=== PATIENT | male | born 1990 | race Two or more races ===

== ENCOUNTER 2017-01-14 09:23 | Emergency (ER) | payer BC ==
--- NOTE | 2017-01-14 09:27 | EDM.PDOC ---
ED HPI GENERAL MEDICAL PROBLEM - General Chief Complaint: Abdominal Pain Stated Complaint: spitting up blood, abd pain Time Seen by Provider: 01/14/17 09:25 Source of Information: Reports: Patient, Old Records ([facility] EMR. No paper hospital chart available.), Other (Friend, EMR [facility]) History Limitations: Reports: Language Barrier - History of Present Illness INITIAL COMMENTS - FREE TEXT/NARRATIVE: The patient was brought to the emergency room via private automobile by his friend evaluation of nonspecific sharp intermittent left chest wall pain and left upper quadrant abdominal pain with symptoms present for at least 1-2 months and progressive during the last week. He complains of 10/10 at this time with patient taking both Prilosec and Protonix with no improvement in his symptoms. He does have a known history of a peptic ulcer, which was still present at time of her last EGD as below. He noticed some possible hemoptysis earlier this morning with no history of true hematemesis, significant cough, wheezing, dyspnea, fever, or distress. No recent history of other abdominal pain , nausea, diarrhea, constipation, melena, gross hematochezia, or any food intolerance, including fatty foods, etc.. The patient denies any chest pain/ pressure, heart flutter, dizziness, orthostasis, orthopnea, diaphoresis, paresthesias, recent decreased exercise tolerance, or any other anginal-type symptoms. Onset: Gradual Duration: Getting Worse, Intermittent, Other (As above) Location: Reports: Chest, Abdomen. Denies: Head, Face, Neck, Back, Pelvis, Upper Extremity, Left, Upper Extremity, Right, Generalized, Radiates to Quality: Reports: Same as Previous Episode, Sharp, Stabbing Severity: Severe Improves with: Reports: None Worsens with: Reports: None Context: Reports: Other (As above) Associated Symptoms: Reports: Chest Pain (Chest wall), Cough (Occasional), cough w sputum (Possible hemoptysis as above). Denies: Confusion, Diaphoresis, Fever/Chills, Headaches, Loss of Appetite, Malaise, Nausea/Vomiting, Shortness of Breath, Syncope, Weakness Treatments VIDEO JOURNALIST: Reports: Other Medication(s) (As above) Left Upper Abdomen Pain Score (Numeric/FACES): 10 - Related Data Allergies Allergy/AdvReac Type Severity Reaction Status Date / Time iopamidol [From Isovue-128] Allergy Hives Verified 01/14/17 12:09 Home Meds: Home Meds Famotidine [Pepcid] 20 mg PO BID #60 tablet 01/14/17 [Rx] Pantoprazole Sodium 40 mg PO BID #60 tablet. 01/14/17 [Rx] Sucralfate [Carafate] 1 gm PO QIDACANDBED #100 tablet 01/14/17 [Rx] Past Medical History HEENT History: Reports: None. Denies: Allergic Rhinitis, Glaucoma, Impaired Vision, Macular Degeneration, Otitis Media Cardiovascular History: Reports: None. Denies: Afib, Arrhythmia, Blood Clots/ VTE/DVT, CAD, Heart Murmur, High Cholesterol, Hypertension, NM, PVD, Syncope Respiratory History: Reports: Other (See Below). 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 Denies: Celiac Disease, Cholelithiasis, Chronic Constipation , Chronic Diarrhea, GI Bleed, Inflammatory Bowel Disease, Irritable Bowel Syndrome Other Gastrointestinal History: Refractory gastric ulcer by EGD Genitourinary History: Reports: None. Denies: BPH, Chronic Renal Insuffiency, Renal Calculus, STD, Urinary Incontinence, UTI, Recurrent Musculoskeletal History: Reports: Back Pain, Chronic, Fracture, Osteoarthritis, Other (See Below). Denies: Amputation, Gout, Neck Pain, Chronic, RA, SLE Other Musculoskeletal History: Scoliosis, minor distal right tibial and fibular fracture in 2011 Neurological History: Reports: None. Denies: Cerebral Aneurysms, Concussion, CVA, Headaches, Chronic, Head Trauma, Migraines, Seizure, TIA Psychiatric History: Reports: Anxiety, Depression. Denies: Addiction, Psych Hospitalization(s), Suicide Attempt, Suicidal Ideation Endocrine/Metabolic History: Reports: None. Denies: Diabetes, Type I, Diabetes , Type II, Hypothyroidism, IDDM Hematologic History: Reports: None. Denies: Anemia, Blood Transfusion(s), Iron Deficiency Immunologic History: Reports: None. Denies: AIDS, HIV, SLE Oncologic (Cancer) History: Reports: None Dermatologic History: Reports: None. Denies: Eczema, Psoriasis - Infectious Disease History Infectious Disease History: Reports: Helicobacter Pylori. Denies: C-Difficile, Chicken Pox, Measles, Meningitis, Mononucleosis, MRSA, Mumps, Pertussis ( Whooping Cough), Rubella, Shingles, TB, VRE - Past Surgical History Head Surgeries/Procedures: Reports: None HEENT Surgical History: Reports: None. Denies: Adenoidectomy, Eye Surgery, Laser Surgery, LASIK, Myringotomy w Tube(s), Naso-Sinus Surgery, Oral Surgery, Tonsillectomy Cardiovascular Surgical History: Reports: None. Denies: Varicose, Vascular Surgery Respiratory Surgical History: Reports: None. Denies: Lung Biopsies, Pneumonectomy, Thoracentesis GI Surgical History: Reports: Colonoscopy, EGD, Other (See Below). Denies: Appendectomy, Cholecystectomy, Hernia, Abdominal, Hernia, Inguinal, Hernia Repair/Other, Polypectomy Other GI Surgeries/Procedures: Normal colonoscopy on 11/28/15; EGD with biopsies on 08/15/15 with repeat colonoscopy with biopsy on 01/17/16 with apparently diagnosed gastric ulcer at that time, which apparently persisted at time of repeat procedure in April 2016 Male Surgical History: Reports: None Endocrine Surgical History: Reports: None Neurological Surgical History: Reports: None Musculoskeletal Surgical History: Reports: None Oncologic Surgical History: Reports: None Dermatological Surgical History: Reports: None - Past Imaging History Past Imaging History: Reports: CAT Scan (CT scan of the chest, abdomen, and pelvis with contrast on 06/21/15; CT scan of the abdomen and pelvis with contrast on 06/15/16), Ultrasound (Abdominal ultrasound on 11/11/15), Other (See Below) ( Esophageal motility study on 01/17/16) Social & Family History - Tobacco Use Smoking Status *Q: Current Every Day Smoker Tobacco Use Within Last Twelve Months: Snuff/Dip Years of Tobacco use: 3 Packs/Tins Daily: 0.5 (Started chewing tobacco at age 23) Used Tobacco, but Quit: Yes Month Tobacco Last Used: Patient smoked about one half pack of cigarettes for about one year, Smoking Cessation Information Provided To Patient: Yes Second Hand Smoke Exposure: No Second Hand Smoke Education Provided: No - Caffeine Use Caffeine Use: Reports: Soda (2 sodas per week), Tea (1 cup per day). 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 ED EXAM, GI/ABD - Physical Exam Exam: See Below Exam Limited By: No Limitations General Appearance: Alert, WD/WN, No Apparent Distress, Anxious (Moderate) Eyes: Bilateral: Normal Appearance, EOMI (PERRLA) Ears: Normal External Exam, Normal Canal, Hearing Grossly Normal, Normal TMs Nose: Normal Inspection, Normal Mucosa, No Blood Throat/Mouth: Normal Inspection, Normal Lips, Normal Teeth, Normal Gums, Normal Oropharynx, Normal Voice, No Airway Compromise. No: Dysphagia, Perioral Cyanosis Head: Atraumatic, Normocephalic Neck: Normal Inspection, Supple, Non-Tender, Full Range of Motion. No: Lymphadenopathy (L), Lymphadenopathy (R), Thyromegaly Respiratory/Chest: No Respiratory Distress, Lungs Clear, Normal Breath Sounds, No Accessory Muscle Use, Chest Non-Tender. No: Rales, Pleural Rub, Retractions Cardiovascular: Normal Peripheral Pulses, Regular Rate, Rhythm, No Edema, No Gallop, No JVD, No Murmur, No Rub. No: Gallop/S3, Gallop/S4, Friction Rub GI/Abdominal Exam: Normal Bowel Sounds, Soft, No Organomegaly, No Distention, No Abnormal Bruit, No Mass, Pelvis Stable, Tender (Borderline left upper quadrant palpation pain). No: Guarding, Rigid, Rebound (Male) Exam: Deferred Rectal (Males) Exam: Deferred Back Exam: Normal Inspection, Full Range of Motion. No: CVA Tenderness (L), CVA Tenderness (R) Extremities: Normal Inspection, Normal Range of Motion, Non-Tender, No Pedal Edema, Normal Capillary Refill. No: Cristian's Sign Neurological: Alert, Oriented, CN II-XII Intact, Normal Cognition, Normal Gait, No Motor/Sensory Deficits Psychiatric: Anxious (Moderate), Depressed Mood (Borderline) Skin Exam: Warm, Dry, Intact, Normal Color, No Rash. No: Diaphoretic, Ecchymosis, Jaundice, Lymphangitis, Pallor, Petechiae, Wound/Incision Lymphatic: No Adenopathy Course - Vital Signs Last Recorded V/S: Last Vital Signs Temp 36.7 C 01/14/17 12:11 Pulse 62 01/14/17 13:05 Resp 16 01/14/17 13:05 BP 104/60 01/14/17 11:15 Pulse Ox 97 01/14/17 13:05 Vital Signs - 24 hr 01/14/17 01/14/17 01/14/17 09:30 10:02 10:15 Temperature [ Oral] Temperature [ 37.2 C Temporal] Pulse, 71 65 78 Peripheral [ Left Pulse Oximetry] Respiratory 16 16 16 Rate Blood Pressure 120/67 116/58 L 115/63 [Right Upper Arm] O2 Sat by Pulse 99 98 97 Oximetry 01/14/17 01/14/17 01/14/17 10:40 11:15 12:11 Temperature [ 36.7 C Oral] Temperature [ Temporal] Pulse, 70 67 Peripheral [ Left Pulse Oximetry] Respiratory 16 16 Rate Blood Pressure 105/60 104/60 [Right Upper Arm] O2 Sat by Pulse 97 97 Oximetry 01/14/17 13:05 Temperature [ Oral] Temperature [ Temporal] Pulse, 62 Peripheral [ Left Pulse Oximetry] Respiratory 16 Rate Blood Pressure [Right Upper Arm] O2 Sat by Pulse 97 Oximetry - Orders/Labs/Meds Orders: Active Orders 24 hr Category Date Time Status Peripheral IV Care [RC] . DIRECTED Care 01/14/17 09:28 Active Abdomen Pelvis w Cont [CT] Stat Exams 01/14/17 11:27 Taken Abdomen Series w Chest 1V [CR] Stat Exams 01/14/17 09:28 Taken Chest wo Cont [CT] Stat Exams 01/14/17 12:06 Taken Obtain Past Medical Record [OM.PC] Urgent Oth 01/14/17 09:28 Active Peripheral IV Insertion Adult [OM.PC] Stat Oth 01/14/17 09:28 Ordered Resuscitation Status Stat Resus Stat 01/14/17 09:28 Ordered Labs: Laboratory Tests 01/14/17 01/14/17 01/14/17 Range/Units 09:46 09:46 09:46 WBC 9.4 (4.0-10.2) K/uL RBC 5.23 (4.33-5.41) M/uL Hgb 16.5 (13.1-16.8) g/dL Hct 44.9 (39.0-49.0) % MCV 85.9 (84.0-98.0) fL MCH 31.5 (28.2-33.3) pg MCHC 36.7 H (31.7-36.0) g/dL RDW 13.2 (11.2-14.1) % Plt Count 255 (150-350) K/uL Neut % (Auto) 66.5 (45.0-80.0) % Lymph % (Auto) 25.3 (10.0-50.0) % [place] % (Auto) 6.9 (2.0-14.0) % Eos % (Auto) 1.1 (0.0-5.0) % Baso % (Auto) 0.2 (0.0-2.0) % Neut # (Auto) 6.22 (1.40-7.00) K/uL Lymph # (Auto) 2.37 (0.50-3.50) K/uL [place] # (Auto) 0.65 (0.00-1.00) K/uL Eos # (Auto) 0.10 (0.00-0.50) K/uL Baso # (Auto) 0.02 (0.00-0.20) K/uL PT 11.6 (9.8-11.7) SEC INR 1.1 APTT 27.3 (22.1-29.8) SEC Sodium (136-145) mmol/L Potassium (3.5-5.1) mmol/L Chloride (98-107) mmol/L Carbon Dioxide (21.0-32.0) mmol/L BUN (7-18) mg/dL Creatinine (0.51-1.17) mg/dL Est Cr Clr Drug Dosing mL/min Estimated GFR (MDRD) mL/min Glucose (74-106) mg/dL Lactic Acid (0.4-2.0) mmol/L Uric Acid (2.6-7.2) mg/dL Calcium (8.5-10.1) mg/dL Magnesium (1.8-2.4) mg/dL Total Bilirubin (0.2-1.0) mg/dL AST (15-37) U/L ALT (12-78) U/L Alkaline Phosphatase (46-116) IU/L Total Protein (6.4-8.2) g/dL Albumin (3.4-5.0) g/dL Amylase 39 (25-115) U/L Lipase (73-393) U/L 01/14/17 01/14/17 Range/Units 09:46 09:46 WBC (4.0-10.2) K/uL RBC (4.33-5.41) M/uL Hgb (13.1-16.8) g/dL Hct (39.0-49.0) % MCV (84.0-98.0) fL MCH (28.2-33.3) pg MCHC (31.7-36.0) g/dL RDW (11.2-14.1) % Plt Count (150-350) K/uL Neut % (Auto) (45.0-80.0) % Lymph % (Auto) (10.0-50.0) % [place] % (Auto) (2.0-14.0) % Eos % (Auto) (0.0-5.0) % Baso % (Auto) (0.0-2.0) % Neut # (Auto) (1.40-7.00) K/uL Lymph # (Auto) (0.50-3.50) K/uL [place] # (Auto) (0.00-1.00) K/uL Eos # (Auto) (0.00-0.50) K/uL Baso # (Auto) (0.00-0.20) K/uL PT (9.8-11.7) SEC INR APTT (22.1-29.8) SEC Sodium 140 (136-145) mmol/L Potassium 4.6 (3.5-5.1) mmol/L Chloride 103 (98-107) mmol/L Carbon Dioxide 27.5 (21.0-32.0) mmol/L BUN 11 (7-18) mg/dL Creatinine 0.77 (0.51-1.17) mg/dL Est Cr Clr Drug Dosing 132.34 mL/min Estimated GFR (MDRD) > 60 mL/min Glucose 89 (74-106) mg/dL Lactic Acid 0.7 (0.4-2.0) mmol/L Uric Acid 4.9 (2.6-7.2) mg/dL Calcium 9.2 (8.5-10.1) mg/dL Magnesium 1.9 (1.8-2.4) mg/dL Total Bilirubin 0.7 (0.2-1.0) mg/dL AST 30 (15-37) U/L ALT 43 (12-78) U/L Alkaline Phosphatase 98 (46-116) IU/L Total Protein 8.4 H (6.4-8.2) g/dL Albumin 4.1 (3.4-5.0) g/dL Amylase (25-115) U/L Lipase 215 (73-393) U/L Meds: Medications Discontinued Medications Generic Name Dose Route Start Last Admin Trade Name Freq PRN Reason Stop Dose Admin Diphenhydramine HCl 50 mg 01/14/17 11:36 01/14/17 11:41 Benadryl IVPUSH 01/14/17 11:37 50 mg ONETIME ONE Administration Famotidine 40 mg 01/14/17 09:28 01/14/17 09:37 Pepcid IVPUSH 01/14/17 09:29 40 mg ONETIME ONE Administration Iopamidol 100 ml 01/14/17 10:11 01/14/17 12:18 Isovue-300 (61%) IVPUSH 01/14/17 10:12 100 ml ONETIME ONE Administration Methylprednisolone Sodium Succinate 125 mg 01/14/17 11:36 01/14/17 11:41 Solu-Medrol IVPUSH 01/14/17 11:37 125 mg ONETIME ONE Administration Sodium Chloride 10 ml 01/14/17 09:28 01/14/17 11:45 Saline Flush FLUSH 10 ml ASDIRECTED PRN Administration Keep Vein Open - Radiology Interpretation Free Text/Narrative:: Acute abdominal x-rays shows evidence of moderate to severe hypoexpansion of the right lung with secondary atelectasis but no significant pulmonary infiltrates. Shifting of the mediastinum to the right secondary to right with some prominence of the mediastinal region. No cardiomegaly, CHF, pneumothorax, fluid levels, ileus,, obstruction, or free air Telephone consultation at 12:00 hours with the radiology department at [facility] with initial preliminary verbal report of CT scan of the abdomen and pelvis with contrast showing no significant findings. Subsequent Telephone consultation with the same department at 13:00 hours with preliminary verbal report of CT scan of the chest with contrast showing stable findings from previous evaluation on 06/21/15 including right pulmonary artery atresia CT Results Date: 01/14/17 CT Results Time: 12:00 Departure - Departure Time of Disposition: 13:20 Disposition: Home, Self-Care 01 Condition: Good Clinical Impression: Hemoptysis, Tobacco abuse counseling, Peptic reflux disease, Mixed anxiety depressive disorder, Pulmonary artery anomaly Allergic reaction caused by a drug Qualifiers: Encounter type: initial encounter Qualified Code(s): T78.40XA - Allergy, unspecified, initial encounter - Discharge Information Prescriptions: Famotidine [Pepcid] 20 mg PO BID #60 tablet Pantoprazole Sodium 40 mg PO BID #60 tablet. Sucralfate [Carafate] 1 gm PO QIDACANDBED #100 tablet Instructions: Drug Allergy, [id number], Abdominal Pain, Adult, [id number] Referrals: PCP,Not In Area [Ordering Only Provider] - Forms: ED Department Discharge Additional Instructions: 1. Followup with your regular provider in 10-14 days as directed. Possible further GI workup depending on her response to your new medical therapy 2. Tylenol 650 mg by mouth every 4 hours when necessary as directed. Strict no use of ibuprofen, Aleve, or other NSAIDs 3. Work excuse- See Form 4. Stop all tobacco use SUZANNE as directed/per provided information and consider contacting Quit LIne, etc.. 5. Discuss possible medical therapy and/or counseling with your regular provider concerning increased stressors at your above follow-up visit 6. You may use OTC Benadryl at 50 mg by mouth every 4 hours when necessary, if allergic skin reaction recurs, with sedation precautions with this medication. Notify your providers that she will are now allergic to IV contrast dye 7. Sedation precautions with no driving, etc. for 12 hours because of emergency room medications. - Problem List & Annotations (1) Abdominal pain SNOMED Code(s): 33406433 Code(s): R10.9 - UNSPECIFIED ABDOMINAL PAIN Status: Acute Priority: High Onset Date: ~10/23/15 Annotation/Comment:: Various therapeutic options were discussed with the patient. He was strongly encouraged to discontinue chewing tobacco use SUZANNE secondary to his refractory gastric ulcer. He was once again counseled on the proper use of Nicorette gum and provided tobacco cessation information. During last EGD in April 2016 the patient apparently misunderstood discharge instructions and discontinue both his Prilosec and Protonix. His Prilosec will be discontinued with his Protonix increased to 40 mg by mouth twice a day he will also be initiated on additional Pepcid 20 mg twice a day and Carafate 4 times a day, before meals, as a paste with close follow-up by his regular provider as per discharge instructions. Work excuse provided. Otitis IV Pepcid given in the emergency room with patient already taking both oral Protonix and omeprazole earlier this morning. Qualifiers: Abdominal location: epigastric Qualified Code(s): R10.13 - Epigastric pain (2) Peptic reflux disease SNOMED Code(s): 21025167 Code(s): K21.9 - GASTRO-ESOPHAGEAL REFLUX DISEASE WITHOUT ESOPHAGITIS Status: Chronic Priority: High Annotation/Comment:: Note refractory gastric ulcer as above. Note previous H. pylori infection. Repeat stool specimen for H. pylori evaluations strongly recommended (3) Pulmonary artery anomaly SNOMED Code(s): 33936130 Code(s): Q25.79 - OTHER CONGENITAL MALFORMATIONS OF PULMONARY ARTERY Status : Chronic Priority: Medium Annotation/Comment:: Note CT scan results as above. Continue to observe closely by his regular providers as per discharge instructions, including consideration of MRI of the chest, possible PFTs, TB evaluation, etc. secondary to his possible hemoptysis (4) Hemoptysis SNOMED Code(s): 10564115 Code(s): R04.2 - HEMOPTYSIS Status: Acute Priority: High Onset Date: Annotation/Comment:: Possible hemoptysis earlier this morning by patient history. 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 The patient was in [place] for about 3 months and just returned to this area on 01/05/17. No known direct exposure to TB, although consideration of further testing and evaluation, if his hemoptysis recurs. No direct evidence of significant pneumonia, CHF, etc. at this time (5) Allergic reaction caused by a drug SNOMED Code(s): 205039462 Code(s): T78.40XA - ALLERGY, UNSPECIFIED, INITIAL ENCOUNTER Status: Acute Priority: High Onset Date: 01/14/17 Annotation/Comment:: The patient unfortunately developed mild diffuse generalized hives and pruritus after the administration of IV and oral contrast, and he will the now declared allergic to contrast. The patient will notify his provider concerning this reaction today. IV Solu-Medrol and IV Benadryl were given with overall good results with previous IV Pepcid as above. Note that no evidence of dysphagia, dyspnea, angioedema, etc. with EpiPen not required. Symptoms resolved at time of discharge with no additional sequelae from the above eaction. Qualifiers: Encounter type: initial encounter Qualified Code(s): T78.40XA - Allergy, unspecified, initial encounter (6) Mixed anxiety depressive disorder SNOMED Code(s): 306369077 Code(s): F41.8 - OTHER SPECIFIED ANXIETY DISORDERS Status: Chronic Priority: Medium Annotation/Comment:: Moderate anxious affect today. Continue to observe closely by his regular provider with consideration of medical therapy as needed as per discharge instructions (7) Tobacco abuse counseling SNOMED Code(s): 135514332, 869269349 Code(s): Z71.6 - TOBACCO ABUSE COUNSELING Status: Chronic Priority: Medium Annotation/Comment:: As above - Problem List Review Problem List Initiated/Reviewed/Updated: Yes - My Orders Last 24 Hours: My Active Orders 01/14/17 09:28 Peripheral IV Care [RC] . DIRECTED Abdomen Series w Chest 1V [CR] Stat Obtain Past Medical Record [OM.PC] Urgent Peripheral IV Insertion Adult [OM.PC] Stat Resuscitation Status Stat 01/14/17 11:27 Abdomen Pelvis w Cont [CT] Stat 01/14/17 12:06 Chest wo Cont [CT] Stat - Assessment/Plan Last 24 Hours: My Active Orders 01/14/17 09:28 Peripheral IV Care [RC] . DIRECTED Abdomen Series w Chest 1V [CR] Stat Obtain Past Medical Record [OM.PC] Urgent Peripheral IV Insertion Adult [OM.PC] Stat Resuscitation Status Stat 01/14/17 11:27 Abdomen Pelvis w Cont [CT] Stat 01/14/17 12:06 Chest wo Cont [CT] Stat Assessment:: As above Plan: As above. Extensive precautions were given to the patient and his friend, who are in agreement with the treatment plan. See Patient Instructions for further treatment and plan.
[2017-01-14] MEDS ORDERED: Famotidine 20 MG/2 ML SDV IVPUSH ONE (09:28)
[2017-01-14] MEDS: Sodium Chloride 0.9% 10 ML Syringe FLUSH PRN ×2 (09:37→11:45)
[2017-01-14 10:08] LABS: CHLORIDE,CL 103 mmol/L (98-107); SODIUM,NA 140 mmol/L (136-145)
[2017-01-14] MEDS ORDERED: Iopamidol 612 MG/ML 100 ML Bottle IVPUSH ONE (10:11)
[2017-01-14 11:20] VITALS: BP 104/60
[2017-01-14] MEDS ORDERED: diphenhydrAMINE 50 MG/ML SDV IVPUSH ONE (11:36)
[2017-01-14] MEDS ORDERED: methylPREDNISolone Sodium Succinate 125 MG/2 ML SDV IVPUSH ONE (11:36)
== END 2017-01-14 13:20 | disposition home or self-care (01) ==
LOC: LL.ED 09:23
DX: K21.9 Gastro-esophageal reflux disease without esophagitis (principal); R04.2 Hemoptysis; T50.905A Adverse effect of unspecified drugs, medicaments and biological substances, initial encounter; F17.210 Nicotine dependence, cigarettes, uncomplicated; Z88.8 Allergy status to other drugs, medicaments and biological substances; Z71.6 Tobacco abuse counseling; F41.8 Other specified anxiety disorders; Q25.79 Other congenital malformations of pulmonary artery
CPT/HCPCS: 36415; 71250; 74022; 74177; 80053; 82150; 83605; 83690; 83735; 84550; 85025; 85610; 85730; 96374; 96375; 99285; J1200; J2930; J7050; Q9967; S0028

== ENCOUNTER 2020-04-23 09:59 | Emergency (ER) | payer BC ==
[2020-04-23] MEDS ORDERED: Sodium Chloride 0.9% 10 ML Syringe FLUSH PRN (10:06)
[2020-04-23] MEDS ORDERED: Pantoprazole 40 MG Vial IVPUSH ONE (10:06)
[2020-04-23] MEDS ORDERED: Famotidine 20 MG/2 ML SDV IVPUSH ONE (10:06)
[2020-04-23] MEDS ORDERED: Ondansetron 4 MG/2 ML SDV IVPUSH ONE (10:06)
[2020-04-23] MEDS ORDERED: Lactated Ringers 1,000 ML IV ONE (10:06)
--- NOTE | 2020-04-23 10:06 | EDM.PDOC ---
ED HPI GENERAL MEDICAL PROBLEM - General Chief Complaint: General Stated Complaint: c/o chest discomfort, shorrtness of breath Time Seen by Provider: 04/23/20 10:00 Source of Information: Reports: Patient, Old Records ([facility] EMR. No paper hospital chart available.), Other ([facility]) History Limitations: Reports: No Limitations - History of Present Illness INITIAL COMMENTS - FREE TEXT/NARRATIVE: The patient drove himself to the emergency room via private automobile for evaluation of diffuse 10/10 sharp and cramping abdominal pain extending into his chest region with patient having a long history of recurrent gastritis with extensive recent work-up as below. Note that he did take his Pepcid this morning, however he has not been taking his proton pump inhibitor since outpatient evaluation at [facility] in [place] on 04/18/2020. The patient denies any chest pressure, heart flutter,orthostasis, orthopnea, diaphoresis, paresthesias, recent decreased exercise tolerance, or any other anginal-type symptoms, although he is having some nonspecific dizziness. He is a somewhat poor historian secondary to his moderate anxious affect today. No recent history of emesis, diarrhea, melena, gross hematochezia, or any food intolerance, including fatty foods, however some possible mild nausea prior to arrival. He denies any gross hematuria, colic, or the UTI symptoms. The patient also denies any recent fever, wheezing, dyspnea, etc. with possible hemoptysis prior to arrival? He denies any known exposure to infection, including COVID-19, etc. His symptoms started 2 days ago with somewhat worsening symptoms at work earlier today. He did have a normal bowel movement yesterday. Onset: Gradual, Other (As above) Duration: Day(s): (As above), Constant, Getting Worse Location: Reports: Chest, Abdomen, Back, Radiates to (As above). Denies: Upper Extremity, Left, Upper Extremity, Right Quality: Reports: Same as Previous Episode, Sharp Severity: Severe Improves with: Reports: None Worsens with: Reports: None Context: Reports: Other (As above). Denies: Sick Contact Associated Symptoms: Reports: Chest Pain, Cough, cough w sputum (Possible hemoptysis), Nausea/Vomiting (No emesis). 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 Denies: Allergic Rhinitis, Cataract, Glaucoma, Hard of Hearing, Impaired Vision, Macular Degeneration, Otitis Media, Retinal Detachment Cardiovascular History: Reports: Other (See Below). 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 Borderline mild left ventricular enlargement and mild left atrial enlargement by echocardiogram in April 2020 as below. Respiratory History: Reports: Other (See Below). 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 Gastrointestinal History: Reports: Chronic Constipation, Gastritis, GERD, Helicobacter Pylori, PUD, Other (See Below). Denies: Celiac Disease, Cholelithiasis, Colon Polyp, Diverticulosis, GI Bleed, Hepatitis, Inflammatory Bowel Disease, Irritable Bowel Syndrome, Jaundice, Pancreatitis Other Gastrointestinal History: Refractory gastric ulcer by EGD in 2019 with severe recurrent gastritis and history of borderline Conn's esophagitis. Hyperbilirubinemia. Genitourinary History: Reports: None. Denies: Acute Renal Failure, BPH, Chronic Renal Insuffiency, Renal Calculus, STD, Urinary Incontinence, UTI, Recurrent Musculoskeletal History: Reports: Arthritis, Back Pain, Chronic, Fracture, Osteoarthritis, Other (See Below). Denies: Gout, Neck Pain, Chronic, Osteoporosis, SLE Other Musculoskeletal History: Scoliosis, minor distal right tibial and fibular fracture in 2010 Neurological History: Reports: Concussion, Head Trauma, Other (See Below). Denies: Cerebral Aneurysms, CVA, Headaches, Chronic, Migraines, MS, Neuropathy, Peripheral, Parkinson's, Seizure, TIA, Vertigo Other Neuro History: Head concussion in 2012. Psychiatric History: Reports: Anxiety, Depression. Denies: Abuse, Victim of, ADD, ADHD, Addiction, Psych Hospitalization(s), Psychosis, PTSD, Suicide Attempt, Suicidal Ideation Endocrine/Metabolic History: Reports: Other (See Below). Denies: Diabetes, Type I, Diabetes, Type II, Diabetes Mellitus, Type 3c, Hypothyroidism, IDDM, Obesity/BMI 30+ Other Endocrine/Metabolic History: Hyperbilirubinemia. Hypocalcemia. Hypomagnesemia. Hematologic History: Reports: None. Denies: Anemia, Blood Transfusion(s), Iron Deficiency Immunologic History: Reports: None. Denies: AIDS, HIV, SLE Oncologic (Cancer) History: Reports: None. Denies: Basal Cell Carcinoma, Colon, Hodgkin's Lymphoma, Leukemia, Lymphoma, Malignant Melanoma, Non-Hodgkin's Lymphoma, Prostate, Squamous Cell Carcinoma Dermatologic History: Reports: None. Denies: Eczema, Psoriasis - Infectious Disease History Infectious Disease History: Reports: Helicobacter Pylori. Denies: C-Difficile, Chicken Pox, Measles, Meningitis, Mononucleosis, MRSA, Mumps, Novel Coronavirus, Pertussis (Whooping Cough), Rubella, Shingles, TB, VRE - Past Surgical History Head Surgeries/Procedures: Reports: None HEENT Surgical History: Reports: None. Denies: Adenoidectomy, Eye Surgery, Laser Surgery, Myringotomy w Tube(s), Naso-Sinus Surgery, Oral Surgery, Tonsillectomy Cardiovascular Surgical History: Reports: None. Denies: Varicose, Vascular Surgery Respiratory Surgical History: Reports: None. Denies: Thoracentesis GI Surgical History: Reports: Colonoscopy, EGD, Other (See Below). Denies: Appendectomy, Cholecystectomy, Hernia, Abdominal, Hernia, Inguinal, Hernia Repair/Other, Polypectomy Other GI Surgeries/Procedures: Normal colonoscopy on 11/28/15; EGD on 05/14/2017 did show some moderate gastritis. EGD with biopsies on 08/15/15 with repeat colonoscopy with biopsy on 01/17/16 with apparently diagnosed gastric ulcer at that time, which apparently persisted at time of repeat procedure in April 2016. EGD with Mosqueda pH capsule motility study on 01/17/2016. Male Surgical History: Reports: None Endocrine Surgical History: Reports: None Neurological Surgical History: Reports: None Musculoskeletal Surgical History: Reports: None Oncologic Surgical History: Reports: None Dermatological Surgical History: Reports: None - Past Imaging History Past Imaging History: Reports: Cardiac Echo (04/18/2020 with ejection fraction of 60-65% with otherwise findings as above.), CAT Scan (CT of the chest on 03/26/2020 and 01/14/2017. CT scan of the chest, abdomen, and pelvis with contrast on 06/21/15; CT scan of the abdomen and pelvis with contrast on 02/21/2018, 01/14/[address]/15/16. CT of the spine on 12/19/2017.), PFT (Positive PFTs on 04/09/2020 including diffusion studies), Ultrasound (Abdominal ultrasound on 11/11/15), Other (See Below) (Esophageal motility study on 01/17/16) Social & Family History - Tobacco Use Tobacco Use Status *Q: Former Tobacco User Tobacco Use Within Last Twelve Months: Snuff/Dip Years of Tobacco use: 6 Packs/Tins Daily: 0.5 Packs/Tins Daily Comment: Stopped using chewing tobacco in December 2019. Patient smoked about 1/2 pack of cigarettes for about 1 year. Used Tobacco, but Quit: Yes Smoking Cessation Information Provided To Patient: No Second Hand Smoke Exposure: No Second Hand Smoke Education Provided: No - Caffeine Use Caffeine Use: Reports: Tea (1 cup per day). Denies: Coffee, Energy Drinks, Soda - Alcohol Use Alcohol Use History: No Days Per Week of Alcohol Use: 0 Number of Drinks Per Day: 0 Number of Drinks Per Day Comment: No previous DWIs, problems with alcohol abuse, etc. 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 ED EXAM, GENERAL - Physical Exam Exam: See Below Exam Limited By: No Limitations General Appearance: Alert, WD/WN, No Apparent Distress, Anxious (Moderate to severe) Eye Exam: Bilateral Eye: EOMI, Normal Inspection (No nystagmus or vertigo), PERRL Ears: Normal External Exam, Normal Canal, Hearing Grossly Normal, Normal TMs Nose: Normal Inspection, Normal Mucosa, No Blood Throat/Mouth: Normal Inspection, Normal Lips, Normal Teeth, Normal Gums, Normal Oropharynx, Normal Voice, No Airway Compromise. No: Dysphagia, Perioral Cyanosis Head: Atraumatic, Normocephalic. No: Facial Swelling, Facial Tenderness, Sinus Tenderness Neck: Normal Inspection, Supple, Non-Tender, Full Range of Motion. No: Lymphadenopathy (L), Lymphadenopathy (R), Thyromegaly Respiratory/Chest: No Respiratory Distress, Lungs Clear, Normal Breath Sounds, No Accessory Muscle Use, Chest Non-Tender. No: Pleural Rub, Retractions Cardiovascular: Normal Peripheral Pulses, Regular Rate, Rhythm, No Edema, No Gallop, No JVD, No Murmur, No Rub. No: Gallop/S3, Gallop/S4, Friction Rub Peripheral Pulses: 2+: Radial (L), Radial (R), Dorsalis Pedis (L), Dorsalis Pedis (R) GI/Abdominal: Normal Bowel Sounds, Soft, Non-Tender, No Organomegaly, No Distention, No Abnormal Bruit, No Mass. No: Guarding (Male) Exam: Deferred Rectal (Males) Exam: Deferred Back Exam: Full Range of Motion, Other (Mild scoliosis). No: CVA Tenderness (L), CVA Tenderness (R), Muscle Spasm, Paraspinal Tenderness, Vertebral Tenderness Extremities: Normal Inspection, Normal Range of Motion, Non-Tender, No Pedal Edema, Normal Capillary Refill. No: Cristian's Sign Neurological: Alert, Oriented, CN II-XII Intact, Normal Cognition, Normal Gait, Normal Reflexes (Negative Babinski's), No Motor/Sensory Deficits Psychiatric: Anxious (Moderate to severe), Depressed Mood (Mild) Skin Exam: Warm, Dry, Intact, Normal Color, No Rash. No: Diaphoretic, Wound/Incision #1 Interpretation EKG Date: 04/23/20 Time: 10:15 Rhythm: Other (Sinus bradycardia) Rate (Beats/Min): 57 [place]: Normal P-Wave: Present QRS: Normal (0.08 seconds) ST-T: Normal QT: Normal KS/PQ Interval: 0.15 seconds representing a borderline short KS interval with no delta waves noted. Pulmonary hypertension by EKG. Comparison: NA - No Prior EKG EKG Interpretation Comments: 1. No acute ischemic changes 2. Sinus bradycardia 3. Borderline short KS interval 4. Pulmonary hypertension by EKG Course - Vital Signs Last Recorded V/S: Last Vital Signs Temp 36.1 C 04/23/20 11:18 Pulse 61 04/23/20 11:18 Resp 20 04/23/20 11:18 BP 103/59 L 04/23/20 11:18 Pulse Ox 97 04/23/20 09:59 Vital Signs - 24 hr 04/23/20 04/23/20 04/23/20 09:59 10:34 11:18 Temperature [ 36.2 C 36.1 C Temporal] Pulse, 63 57 L 61 Peripheral [ Right Pulse Oximetry] Respiratory 18 20 20 Rate Blood Pressure 106/59 L 104/56 L 103/59 L [Right Upper Arm] O2 Sat by Pulse 97 Oximetry - Orders/Labs/Meds Orders: Active Orders 24 hr Category Date Time Status Cardiac Monitoring [RC] . DIRECTED Care 04/23/20 10:10 Active EKG Documentation Completion [RC] ASDIRECTED Care 04/23/20 10:10 Active Peripheral IV Care [RC] . DIRECTED Care 04/23/20 10:07 Active Nothing Per Oral Diet [DIET] Diet 04/23/20 Breakfast Active Abdomen Series w Chest 1V [CR] Stat Exams 04/23/20 10:06 Taken CULTURE URINE [RM] Stat Lab 04/23/20 10:40 Received OCCULT BLOOD DIAGNOSTIC [OP] Stat Lab 04/23/20 10:06 Ordered Sodium Chloride 0.9% [Saline Flush] Med 04/23/20 10:06 Active 10 ml FLUSH ASDIRECTED PRN Obtain Past Medical Record [OM.PC] Urgent Oth 04/23/20 10:06 Active Peripheral IV Insertion Adult [OM.PC] Stat Oth 04/23/20 10:06 Ordered Resuscitation Status Stat Resus Stat 04/23/20 10:06 Ordered Labs: Laboratory Tests 04/23/20 04/23/20 04/23/20 Range/Units 10:10 10:10 10:10 WBC 5.9 (4.0-10.2) K/uL RBC 5.30 (4.33-5.41) M/uL Hgb 16.5 (13.1-16.8) g/dL Hct 45.3 (39.0-49.0) % MCV 85.5 (84.0-98.0) fL MCH 31.1 (28.2-33.3) pg MCHC 36.4 H (31.7-36.0) g/dL RDW 13.0 (11.2-14.1) % Plt Count 182 (150-350) K/uL Neut % (Auto) 46.4 (45.0-80.0) % Lymph % (Auto) 41.8 (10.0-50.0) % [place] % (Auto) 9.8 (2.0-14.0) % Eos % (Auto) 1.7 (0.0-5.0) % Baso % (Auto) 0.3 (0.0-2.0) % Neut # (Auto) 2.76 (1.40-7.00) K/uL Lymph # (Auto) 2.48 (0.50-3.50) K/uL [place] # (Auto) 0.58 (0.00-1.00) K/uL Eos # (Auto) 0.10 (0.00-0.50) K/uL Baso # (Auto) 0.02 (0.00-0.20) K/uL PT 10.8 (9.5-12.0) SEC INR 1.1 APTT 25.2 (24.5-32.8) SEC D-Dimer, Quantitative (0-400) ng/mL Sodium (136-145) mmol/L Potassium (3.5-5.1) mmol/L Chloride (98-107) mmol/L Carbon Dioxide (21.0-32.0) mmol/L BUN (7-18) mg/dL Creatinine (0.51-1.17) mg/dL Est Cr Clr Drug Dosing mL/min Estimated GFR (MDRD) mL/min Glucose (70-99) mg/dL Lactic Acid (0.4-2.0) mmol/L Uric Acid (2.6-7.2) mg/dL Calcium (8.5-10.1) mg/dL Magnesium (1.8-2.4) mg/dL Total Bilirubin (0.2-1.0) mg/dL AST (15-37) U/L ALT (12-78) U/L Alkaline Phosphatase (46-116) IU/L Creatine Kinase (26-308) U/L Creatine Kinase Index (0.0-2.5) % CK-MB (CK-2) (0.00-3.60) ng/mL Troponin I (0.000-0.056) ng/mL NT-Pro-B Natriuret Pep (0-125) pg/mL Total Protein (6.4-8.2) g/dL Albumin (3.4-5.0) g/dL Amylase 34 (25-115) U/L Lipase (73-393) U/L Specimen Type Urine Color Urine Appearance Urine pH (5.0-9.0) Ur Specific [place] (1.005-1.030) Urine Protein (NEGATIVE) mg/dL Urine Glucose (UA) (NEGATIVE) mg/dL Urine Ketones (NEGATIVE) mg/dL Urine Occult Blood (NEGATIVE) Urine Nitrite (NEGATIVE) Urine Bilirubin (NEGATIVE) Urine Urobilinogen (0.2-1.0) E.U./dL Ur Leukocyte Esterase (NEGATIVE) Urine RBC /HPF Urine WBC /HPF Ur Epithelial Cells /LPF Urine Bacteria (NONE TO FEW) /HPF Urine Mucus (NEGATIVE) /LPF Urine Opiates Screen (NEGATIVE) Ur Buprenorphine Scrn (NEGATIVE) Ur Oxycodone Screen (NEGATIVE) Ur EDDP (Meth Metab) (NEGATIVE) Ur Barbiturates Screen (NEGATIVE) Ur Tricyclics Screen (NEGATIVE) Ur Amphetamine Screen (NEGATIVE) U Methamphetamines Scrn (NEGATIVE) Urine MDMA Screen (NEGATIVE) U Benzodiazepines Scrn (NEGATIVE) U Cocaine Metab Screen (NEGATIVE) U Marijuana (THC) Screen (NEGATIVE) Ethyl Alcohol (0.000-0.080) g/dL SARS-CoV-2 RNA (DENISE) (NEGATIVE) 04/23/20 04/23/20 04/23/20 Range/Units 10:10 10:10 10:10 WBC (4.0-10.2) K/uL RBC (4.33-5.41) M/uL Hgb (13.1-16.8) g/dL Hct (39.0-49.0) % MCV (84.0-98.0) fL MCH (28.2-33.3) pg MCHC (31.7-36.0) g/dL RDW (11.2-14.1) % Plt Count (150-350) K/uL Neut % (Auto) (45.0-80.0) % Lymph % (Auto) (10.0-50.0) % [place] % (Auto) (2.0-14.0) % Eos % (Auto) (0.0-5.0) % Baso % (Auto) (0.0-2.0) % Neut # (Auto) (1.40-7.00) K/uL Lymph # (Auto) (0.50-3.50) K/uL [place] # (Auto) (0.00-1.00) K/uL Eos # (Auto) (0.00-0.50) K/uL Baso # (Auto) (0.00-0.20) K/uL PT (9.5-12.0) SEC INR APTT (24.5-32.8) SEC D-Dimer, Quantitative < 100 (0-400) ng/mL Sodium 140 (136-145) mmol/L Potassium 4.2 (3.5-5.1) mmol/L Chloride 105 (98-107) mmol/L Carbon Dioxide 27.8 (21.0-32.0) mmol/L BUN 14 (7-18) mg/dL Creatinine 0.89 (0.51-1.17) mg/dL Est Cr Clr Drug Dosing 119.55 mL/min Estimated GFR (MDRD) > 60 mL/min Glucose 92 (70-99) mg/dL Lactic Acid 1.2 (0.4-2.0) mmol/L Uric Acid 5.0 (2.6-7.2) mg/dL Calcium 8.7 (8.5-10.1) mg/dL Magnesium 1.8 (1.8-2.4) mg/dL Total Bilirubin 1.0 (0.2-1.0) mg/dL AST 18 (15-37) U/L ALT 32 (12-78) U/L Alkaline Phosphatase 73 (46-116) IU/L Creatine Kinase 91 (26-308) U/L Creatine Kinase Index 0.7 (0.0-2.5) % CK-MB (CK-2) 0.60 (0.00-3.60) ng/mL Troponin I 0.000 (0.000-0.056) ng/mL NT-Pro-B Natriuret Pep 32 (0-125) pg/mL Total Protein 7.4 (6.4-8.2) g/dL Albumin 3.9 (3.4-5.0) g/dL Amylase (25-115) U/L Lipase 135 (73-393) U/L Specimen Type Urine Color Urine Appearance Urine pH (5.0-9.0) Ur Specific [place] (1.005-1.030) Urine Protein (NEGATIVE) mg/dL Urine Glucose (UA) (NEGATIVE) mg/dL Urine Ketones (NEGATIVE) mg/dL Urine Occult Blood (NEGATIVE) Urine Nitrite (NEGATIVE) Urine Bilirubin (NEGATIVE) Urine Urobilinogen (0.2-1.0) E.U./dL Ur Leukocyte Esterase (NEGATIVE) Urine RBC /HPF Urine WBC /HPF Ur Epithelial Cells /LPF Urine Bacteria (NONE TO FEW) /HPF Urine Mucus (NEGATIVE) /LPF Urine Opiates Screen (NEGATIVE) Ur Buprenorphine Scrn (NEGATIVE) Ur Oxycodone Screen (NEGATIVE) Ur EDDP (Meth Metab) (NEGATIVE) Ur Barbiturates Screen (NEGATIVE) Ur Tricyclics Screen (NEGATIVE) Ur Amphetamine Screen (NEGATIVE) U Methamphetamines Scrn (NEGATIVE) Urine MDMA Screen (NEGATIVE) U Benzodiazepines Scrn (NEGATIVE) U Cocaine Metab Screen (NEGATIVE) U Marijuana (THC) Screen (NEGATIVE) Ethyl Alcohol 0.000 (0.000-0.080) g/dL SARS-CoV-2 RNA (DENISE) (NEGATIVE) 04/23/20 04/23/20 04/23/20 Range/Units 10:30 10:40 10:40 WBC (4.0-10.2) K/uL RBC (4.33-5.41) M/uL Hgb (13.1-16.8) g/dL Hct (39.0-49.0) % MCV (84.0-98.0) fL MCH (28.2-33.3) pg MCHC (31.7-36.0) g/dL RDW (11.2-14.1) % Plt Count (150-350) K/uL Neut % (Auto) (45.0-80.0) % Lymph % (Auto) (10.0-50.0) % [place] % (Auto) (2.0-14.0) % Eos % (Auto) (0.0-5.0) % Baso % (Auto) (0.0-2.0) % Neut # (Auto) (1.40-7.00) K/uL Lymph # (Auto) (0.50-3.50) K/uL [place] # (Auto) (0.00-1.00) K/uL Eos # (Auto) (0.00-0.50) K/uL Baso # (Auto) (0.00-0.20) K/uL PT (9.5-12.0) SEC INR APTT (24.5-32.8) SEC D-Dimer, Quantitative (0-400) ng/mL Sodium (136-145) mmol/L Potassium (3.5-5.1) mmol/L Chloride (98-107) mmol/L Carbon Dioxide (21.0-32.0) mmol/L BUN (7-18) mg/dL Creatinine (0.51-1.17) mg/dL Est Cr Clr Drug Dosing mL/min Estimated GFR (MDRD) mL/min Glucose (70-99) mg/dL Lactic Acid (0.4-2.0) mmol/L Uric Acid (2.6-7.2) mg/dL Calcium (8.5-10.1) mg/dL Magnesium (1.8-2.4) mg/dL Total Bilirubin (0.2-1.0) mg/dL AST (15-37) U/L ALT (12-78) U/L Alkaline Phosphatase (46-116) IU/L Creatine Kinase (26-308) U/L Creatine Kinase Index (0.0-2.5) % CK-MB (CK-2) (0.00-3.60) ng/mL Troponin I (0.000-0.056) ng/mL NT-Pro-B Natriuret Pep (0-125) pg/mL Total Protein (6.4-8.2) g/dL Albumin (3.4-5.0) g/dL Amylase (25-115) U/L Lipase (73-393) U/L Specimen Type Urinvoid Urine Color Yellow Urine Appearance Clear Urine pH 5.0 (5.0-9.0) Ur Specific [place] >= 1.030 (1.005-1.030) Urine Protein Negative (NEGATIVE) mg/dL Urine Glucose (UA) Negative (NEGATIVE) mg/dL Urine Ketones Negative (NEGATIVE) mg/dL Urine Occult Blood Trace-intact H (NEGATIVE) Urine Nitrite Negative (NEGATIVE) Urine Bilirubin Negative (NEGATIVE) Urine Urobilinogen 0.2 (0.2-1.0) E.U./dL Ur Leukocyte Esterase Negative (NEGATIVE) Urine RBC 0-5 /HPF Urine WBC 0-5 /HPF Ur Epithelial Cells Few /LPF Urine Bacteria Few (NONE TO FEW) /HPF Urine Mucus Few H (NEGATIVE) /LPF Urine Opiates Screen Negative (NEGATIVE) Ur Buprenorphine Scrn Negative (NEGATIVE) Ur Oxycodone Screen Negative (NEGATIVE) Ur EDDP (Meth Metab) Negative (NEGATIVE) Ur Barbiturates Screen Negative (NEGATIVE) Ur Tricyclics Screen Negative (NEGATIVE) Ur Amphetamine Screen Negative (NEGATIVE) U Methamphetamines Scrn Negative (NEGATIVE) Urine MDMA Screen Negative (NEGATIVE) U Benzodiazepines Scrn Negative (NEGATIVE) U Cocaine Metab Screen Negative (NEGATIVE) U Marijuana (THC) Screen Negative (NEGATIVE) Ethyl Alcohol (0.000-0.080) g/dL SARS-CoV-2 RNA (DENISE) Negative (NEGATIVE) Urine specimen sent for culture and sensitivity. 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 Mild to moderate nonspecific bowel gaseous pattern with moderate diffuse stool with no evidence of fluid levels, ileus, obstruction, etc. Mild scoliosis and arthritic changes also noted. Departure - Departure Time of Disposition: 12:00 Disposition: Home, Self-Care 01 Condition: Good Clinical Impression: Mixed anxiety depressive disorder, Peptic reflux disease, Atypical chest pain, Hemoptysis GERD (gastroesophageal reflux disease) Qualifiers: Esophagitis presence: esophagitis presence not specified Qualified Code(s): K21.9 - Gastro-esophageal reflux disease without esophagitis Gastritis Qualifiers: Gastritis type: other gastritis Chronicity: chronic Gastritis bleeding: without bleeding Qualified Code(s): K29.50 - Unspecified chronic gastritis without bleeding - Discharge Information *PRESCRIPTION DRUG MONITORING PROGRAM REVIEWED*: Not Applicable *COPY OF PRESCRIPTION DRUG MONITORING REPORT IN PATIENT YAW: Not Applicable Prescriptions: Simethicone [Anti-Gas] 180 mg PO Q6HR PRN #40 capsule PRN Reason: Gas Sucralfate [Carafate] 1 gm PO ACBED #40 tab Omeprazole 20 mg PO BIDAC #60 cap.sr Instructions: Gastritis, Adult, [id number], Ondansetron injection, Pantoprazole injection, Famotidine injection, Sucralfate tablets, Simethicone chewable tablets, Omeprazole capsules (sprinkle caps) - Rx Referrals: Carmencita Mayo PA [Primary Care Provider] - Forms: ED Department Discharge Additional Instructions: 1. Followup with your regular provider in 7 days as directed for reevaluation and recommended repeat CBC with an additional 14-hour fasting gastrin level. Bring these discharge instructions with you to that visit. 2. Avoid all aspirin, NSAIDs, etc. including ibuprofen, Aleve, etc. as discussed 3. Tylenol 650 mg by mouth every 4 hours when necessary as directed. 4. Work excuse- See Form 5. Immediately after this visit verify that your cellular telephone's voicemail has been activated and is empty. Also verify that your home telephone's answering machine is operating properly and has space to receive messages. Note that it is sometimes necessary for us to be able to contact you at a later date to discuss your medical care. 6. Please remember that we are ALWAYS here for you and want to answer any questions you may have. Feel free to call the hospital any time and we call you back SUZANNE. 7. Congratulations about stopping tobacco use and discontinue marijuana use as discussed. 8. [place] diet including encouragement of oral fluids such as sports drinks, etc. for 24-48 hours as directed. Advance to regular diet as tolerated thereafter. 9. You may also use additional OTC antacids per label instructions as needed. 10. If no significant symptoms at time of follow-up visit consider further work-up including a possible HIDA scan, repeat GI consultation, etc. Sepsis Event Note (ED) - Focused Exam Vital Signs: Vital Signs Temp Pulse Resp BP Pulse Ox 04/23/20 11:18 36.1 C 61 20 103/59 L 04/23/20 10:34 57 L 20 104/56 L 04/23/20 09:59 36.2 C 63 18 106/59 L 97 - Problem List & Annotations (1) GERD (gastroesophageal reflux disease) SNOMED Code(s): 554713780 Code(s): K21.9 - GASTRO-ESOPHAGEAL REFLUX DISEASE WITHOUT ESOPHAGITIS Status: Acute Priority: High Current Visit: Yes Annotation/Comment:: History of recurrent moderate gastritis with extensive previous work-up as above, including recent outpatient evaluation at [facility] on 04/18/2020. Patient has been noncompliant with his prescribed proton pump inhibitor. Excellent results with aggressive therapy in the emergency room as above. Various therapeutic options were discussed with the patient with the patient agreeing to change his medical therapy to that prescribed at time of discharge. He is not fasting with a gastrin level not conducted to this point. Close follow-up with his regular provider with additional fasting gastrin level to be conducted at that time. Consider further GI work-up/consultation depending on his clinical course, including abdominal ultrasound, HIDA scan, etc. [employer] work excuse was provided. Note strong anxious component. 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 Continue to observe closely by regular provider with consideration of TB evaluation secondary to his previous trips to [facility]. COVID-19 rapid test was negative today (3) Atypical chest pain SNOMED Code(s): 926554994 Code(s): R07.89 - OTHER CHEST PAIN Status: Acute Priority: High Current Visit: Yes Onset Date: 04/23/20 Annotation/Comment:: Note negative EKG and cardiac enzymes. Strong anxious component. Note recent echocardiogram on 04/18/2020. No true anginal type symptoms of the chest pain protocol not initiated in the emergency room secondary to his gastritic type symptoms. (4) Gastritis SNOMED Code(s): 9440503 Code(s): K29.70 - GASTRITIS, UNSPECIFIED, WITHOUT BLEEDING Status: Acute Priority: High Current Visit: Yes Annotation/Comment:: As above. He has not been using any aspirin or NSAIDs. Qualifiers: Gastritis type: other gastritis Chronicity: chronic Gastritis bleeding: without bleeding Qualified Code(s): K29.50 - Unspecified chronic gastritis without bleeding (5) Mixed anxiety depressive disorder SNOMED Code(s): 313467292 Code(s): F41.8 - OTHER SPECIFIED ANXIETY DISORDERS Status: Chronic Priority: Medium Current Visit: Yes Annotation/Comment:: Moderate anxious affect today. Continue to observe closely by his regular provider with consideration of medical therapy at time of follow-up. (6) Illicit drug use SNOMED Code(s): 802440027 Code(s): F19.90 - OTHER PSYCHOACTIVE SUBSTANCE USE, UNSPECIFIED, UNCOMPLICA JOZEF Status: Chronic Priority: Medium Current Visit: No Annotation/Comment:: Marijuana cessation once again encouraged with the patient congratulated about stopping his chewing tobacco use. - Problem List Review Problem List Initiated/Reviewed/Updated: Yes - My Orders Last 24 Hours: My Active Orders 04/23/20 Breakfast Nothing Per Oral Diet [DIET] 04/23/20 10:06 Abdomen Series w Chest 1V [CR] Stat OCCULT BLOOD DIAGNOSTIC [OP] Stat Sodium Chloride 0.9% [Saline Flush] 10 ml FLUSH ASDIRECTED PRN Obtain Past Medical Record [OM.PC] Urgent Peripheral IV Insertion Adult [OM.PC] Stat Resuscitation Status Stat 04/23/20 10:07 Peripheral IV Care [RC] . DIRECTED 04/23/20 10:10 Cardiac Monitoring [RC] . DIRECTED EKG Documentation Completion [RC] ASDIRECTED 04/23/20 10:40 CULTURE URINE [RM] Stat - Assessment/Plan Last 24 Hours: My Active Orders 04/23/20 Breakfast Nothing Per Oral Diet [DIET] 04/23/20 10:06 Abdomen Series w Chest 1V [CR] Stat OCCULT BLOOD DIAGNOSTIC [OP] Stat Sodium Chloride 0.9% [Saline Flush] 10 ml FLUSH ASDIRECTED PRN Obtain Past Medical Record [OM.PC] Urgent Peripheral IV Insertion Adult [OM.PC] Stat Resuscitation Status Stat 04/23/20 10:07 Peripheral IV Care [RC] . DIRECTED 04/23/20 10:10 Cardiac Monitoring [RC] . DIRECTED EKG Documentation Completion [RC] ASDIRECTED 04/23/20 10:40 CULTURE URINE [RM] Stat Assessment:: As above Plan: As above. Extensive precautions were given to the patient, who is in agreement with the treatment plan. See Patient Instructions for further treatment and plan.
[2020-04-23 10:32] LABS: PTT,PARTIAL THROMBOPLSTIN TIME 25.2 SEC (24.5-32.8)
[2020-04-23] MEDS ORDERED: Sucralfate 1 GM Tab PO ONE (10:40)
[2020-04-23] MEDS ORDERED: Simethicone 80 MG Tab.Chew PO ONE (10:40)
[2020-04-23 10:43] LABS: CHLORIDE,CL 105 mmol/L (98-107); SODIUM,NA 140 mmol/L (136-145)
[2020-04-23] MEDS ORDERED: GI Cocktail Oral Solution 30 ML PO ONE (10:50)
[2020-04-23 10:58] LABS: BARBITURATE SCREEN,URINE NEGATIVE (NEGATIVE); BENZODIAZEPINES SCREEN,URINE NEGATIVE (NEGATIVE); EDDP,URINE SCREEN NEGATIVE (NEGATIVE); TCA SCREEN,URINE NEGATIVE (NEGATIVE); THC SCREEN,URINE 50 NG/ML NEGATIVE (NEGATIVE)
[2020-04-23 11:18] VITALS: BP 103/59; PULSE 61
== END 2020-04-23 12:00 | disposition home or self-care (01) ==
LOC: SUPCPDRO 09:59 → LL.ED 09:59
DX: K29.50 Unspecified chronic gastritis without bleeding (principal); K21.9 Gastro-esophageal reflux disease without esophagitis; F41.8 Other specified anxiety disorders; R04.2 Hemoptysis; Z91.041 Radiographic dye allergy status; Z79.899 Other long term (current) drug therapy; Z87.891 Personal history of nicotine dependence; Z20.822 Contact with and (suspected) exposure to COVID-19
CPT/HCPCS: 36415; 74022; 80053; 80305-QW; 80307; 81001; 82150; 82550; 82553; 83605; 83690; 83735; 83880; 84484; 84550; 85025; 85379; 85610; 85730; 87086; 93005; 93010; 96374; 96375; 99284; 99285-25; A9270-GY; C9113; J2405; J3490; J7120; U0002